=== PATIENT | female | born 1960 | race Caucasian/White ===

== ENCOUNTER 2023-06-05 01:15 | Day surgery (SDC) | payer OTHER, SELFPAY ==
[2023-05-28 15:04] VITALS: BMI 25.4
--- NOTE | 2023-05-28 15:14 | PC.NURSE ---
Report to the Outpatient Waiting Room, entrance under the green pavilion located off [facility], at time _0830__ on date _06/05/23__. Planned Procedure Time: _1030__. Time changes happen often and if your time is changed the preop area will call you the afternoon before. - You and your visitor will be asked to self-screen and do not enter if you have any COVID symptoms. - A mask is optional within the hospital at this time. Patients may have clear liquids (water, carbonated beverages, clear teas, apple juice) until 3 hours prior to surgery with a maximum of 20 ounces. - No food from midnight until time of surgery - Infants may have breast milk until 4 hours before surgery, formula 6 hours prior to surgery. - Children will be allowed to drink immediately following surgery. If applicable, please bring a bottle or sippy cup to assist with drinking. Juice, water, soda, and popsicles are readily available. For infants on formula, please bring formula the day of surgery. Pacifiers are allowed. Take the following medications with a SIP of water the morning of surgery: __DIAZEPAM, FLUOXITINE, LEVOTHYROXINE DO NOT STOP ANY OF YOUR OTHER PRESCRIPTION MEDICATIONS PRIOR TO SURGERY ?EXCEPT THE FOLLOWING Medications to discontinue per physician CALTRATE/_VITAMIN_D Date to take last dose 06/02/23 Please no make-up, nail prydeinig, hairspray, perfume, deodorant, or body powder the day of surgery. No jewelry (including any body piercings) or valuables the day of surgery, leave them at home. Please take a shower or bath the night before, or the morning of, surgery with an antibacterial soap. Wear comfortable, loose fitting clothing. Children are encouraged to wear pajamas. - Jewelry must be removed prior to entering the operating room. Rings and piercings that are not removed may be cut off. - The hospital will not accept responsibility for valuables. - Please leave all valuables, including medications, at home the day of surgery. If you are going home after surgery, a licensed cement truck driver must drive you home. - NO public transportation without another adult if you receive anesthesia. - We recommend that an adult stay with you for 24 hours following discharge. - We also recommend that you do not drive, make important decision, drink alcoholic beverages, or take any drugs that were not prescribed by your health care provider for at least 24 hours after your discharge time. For Pediatric surgeries, we recommend two adults accompany the child home. Follow any additional instructions given to you from your surgeon. If you or anyone in your household have experienced Covid symptoms in the past week, please notify your surgeon or the nurse liaison at the phone number below for possible testing. Telephone instructions given to _PATIENT___and asked if any additional questions and then verbalized understanding. Patient advised to call surgeon office or pre surgery nurse liaison [phone] if any additional questions.
[2023-06-05] VITALS (10 sets, daily range): BP systolic 114–128; BP diastolic 54–71; PULSE 59–80; RESP 12–16; TEMP 36.4–36.6; O2SAT 93–100
--- NOTE | 2023-06-05 06:04 | ECG_ITS ---
Measurements Intervals [place] Rate: 53 P: 39 DC: 148 QRS: 35 QRSD: 90 T: 54 QT: 511 QTc: 480 Interpretive Statements SINUS BRADYCARDIA LOW QRS VOLTAGE IN PRECORDIAL LEADS BORDERLINE ST-T WAVE ABNORMALITY- ANTERIOR LEADS BASELINE ARTIFACT- V4 BORDERLINE ECG NO PREVIOUS ECG AVAILABLE FOR COMPARISON Electronically Signed On 06-05-2023 8:52:58 [employer] by Son Viramontes D.O.
[2023-06-05 08:44] LABS: Urine Cotinine NEGATIVE
[2023-06-05] MEDS: LACTATED RINGERS 1,000 ML 30 ML IV CONT ×2 (09:00→12:47)
--- NOTE | 2023-06-05 09:20 | P.PNAN_ITS ---
Anes - Initial Pre Proc Eval Procedure: Operation Date: 06/05/23 10:30 Proposed Procedures p Bilateral Breast Reduction - Dong Grider MD Date/Time: 06/05/23 09:20 Surgeon: Dong Grider MD Pre Op Diagnosis: macromastia Patient Data Age: 62 Gender: F Height: 1.52 m Weight: 61.1 kg Last Vital Signs Temp 36.4 C L 06/05/23 08:30 Pulse 60 06/05/23 08:30 Resp 16 06/05/23 08:30 BP 121/66 06/05/23 08:30 Pulse Ox 98 06/05/23 08:30 O2 Del Method Room Air 06/05/23 08:30 Allergies Allergy/AdvReac Type Severity Reaction Status Date / Time Sulfa (Sulfonamide Allergy MOUTH Verified 06/05/23 08:47 Antibiotics) BREAKOUT nitrofurantoin AdvReac Nausea and Verified 06/05/23 08:47 [From Macrobid] Vomiting Home Medications Medication Instructions Recorded Confirmed Type calcium carbonate 600 mg-vitamin 2 tablet PO DAILY 05/28/23 06/05/23 History D3 20 mcg (800 unit) tablet (Caltrate with Vitamin D3) diazepam 2 mg tablet 1.25 mg PO TID PRN Dizziness 05/28/23 06/05/23 History diazepam 5 mg tablet 1.25 mg PO TID DIZZINESS 05/28/23 06/05/23 History estradiol 0.025 mg/24 hr weekly 1 patch topical WEEKLY 05/28/23 06/05/23 History transdermal patch fluoxetine 20 mg capsule 20 mg PO DAILY 05/28/23 06/05/23 History levothyroxine 88 mcg tablet 88 mcg PO DAILY 05/28/23 06/05/23 History progesterone micronized 100 mg 100 mg PO HS 05/28/23 06/05/23 History capsule Laboratory Tests 06/05/23 08:19 Cotinine Negative Patient hx anesthesia problems: none Family hx anesthesia problems: none Results Review: All pre-operative results and documents have been reviewed as part of the pre- operative evaluation. [facility] Past Medical History Medical History (Updated 06/05/23 @ 09:25 by Mauri Hale DO) C5 cervical fracture Depression Hyperlipidemia Hypothyroidism Surgical History Surgical History (Updated 06/05/23 @ 09:25 by Mauri Hale DO) History of abdominoplasty Social History Social History (Updated 06/05/23 @ 09:27 by Mauri Hale DO) Smoking status: Never smoker Alcohol intake: current Drinks per week: 18 Alcohol use details: 2-3/day Substance use: never Living arrangements: with family [place] - [place] Final PreProcedure Day of Procedure 06/05/23 09:20 Patient weight: overweight Heart: regular rate and rhythm Lungs: clear to auscultation Airway: Mallampati scale class II Neurological: alert and oriented Last oral intake: >/= 8 hours ASA classification: III Emergent: no Anesthetic plan: proceed Anesthesia type and monitoring: general ETT and standard monitoring Results Review: All pre-operative results and documents have been reviewed as part of the pre-operative evaluation. Informed Consent: The patient's anesthetic plan and its attendant risks and benefits were discussed with the patient/family/POA. Questions were solicited and answers provided to the satisfaction of the patient/family/POA.
--- NOTE | 2023-06-05 09:21 | P.OP_ITS ---
Procedure Note - Detailed Date of Procedure 06/05/23 Pre-op Diagnosis macromastia Post-op Diagnosis Same Procedure Performed Bilateral reduction mammaplasty Surgeon Dong Grider MD Anesthesia General Findings Inverted T Superior pedicle Tissue removed: Right - 335 grams Left - 252 grams Description of Procedure She is here today for bilateral breast reduction. Previously and again today the risks, benefits, alternatives were discussed in extensive detail. I wanted her to be very realistic about the risks involved as well as expectations. We discussed aftercare and what to monitor for. She understands we can never guarantee final breast size and there will always be asymmetry. I was very upfront and honest about the risks of sensation change and even nipple loss (). Made sure answered all of her questions to her satisfaction today and consent was obtained. She was marked in the preoperative holding area with their verification. The patient was taken to the operating room placed supine on the operating table. Anesthesia was provided by anesthesiology. She was prepped and draped in a standard sterile fashion. A surgical time-out was taken. Stab incisions were made and I tumessed with a tumescent solution. I marked out the nipple-areolar complex at 42 mm. I then de-epithelialized the pedicle. The pedicle was well left well more than 2 cm in thickness. I then removed the inferior portion of the breast as well as the central keel to get shape based on preoperative planning. At this point copiously irrigated with saline solution and verified a strict hemostasis. I reapproximated the pillars using a 2-0 PDS. I tailor tacked the breast into place with sury. Lateral slight fullness that was treated with a 4mm basket cannula based on S.A.F.E. liposuction to desired contour. Low volume (< 100cc). She was placed in a sitting position. I verified the nipple-areolar complex position based on preoperative markings, intraoperative measurements, and observation which were in full agreement. This nipple-areolar complex was marked at 42 mm in size. I then placed supine and de-epithelialized this. Nipple-areolar complex was inset with 3-0 Monocryl. I closed IMF deep with 1 strattafix. I closed the vertical incision with 3-0 Monocryl in the IMF with 3- 0 stratafix. Then everything was closed using a running subcuticular 4-0 Monocryl and tissue glue. A dressing was placed followed by surgical bra. Patient was awoke and taken to PACU without difficulty. All instrument sponge counts were correct at the end of the case. Estimated Blood Loss 75 Drains No Packing No Pathology Yes (Bilateral breast tissue) Complications No immediate complications Condition Stable Disposition PACU
--- NOTE | 2023-06-05 09:21 | WPDHPUPDATE1 ---
History and Physical Update Update Date/Time: 06/05/23 09:21 History and Physical has been reviewed, including an updated exam of the patient. There are NO changes in the patient's condition. Risks, benefits, and alternatives have been discussed and questions answered. Patient agrees to proceed with procedure.
[2023-06-05] MEDS: TRANEXAMIC ACID 1,000MG/ISO100 1,000 MG/100 ML BAG 200 MG IVPB (10:03)
[2023-06-05] MEDS: ceFAZolin 2 GM/D5W 50 ML 2 GM/50 ML BAG IVPB (10:13)
[2023-06-05] MEDS: LACTATED RINGERS IRRIG 1,000 ML, LIDOCAINE HCL 1% LOCAL INJ 50 ML, EPINEPHrine HCL INJ ... INFILTRATE (10:33)
[2023-06-05] MEDS: fentaNYL CITRATE INJ (*CRX) 100 MCG/2 ML VIAL 25 MCG IV PUSH ×3 (12:49→13:29)
[2023-06-05] MEDS: oxyCODONE HCL (*CRX) 5 MG TAB IR PO (14:07)
[2023-06-05] MEDS: ONDANSETRON INJ 4 MG/2 ML VIAL IV PUSH (14:18)
== END 2023-06-05 14:58 | disposition home or self-care (01) ==
PROVIDERS: Visit Provider Surgery Plastic and Reconstructive Surgery
PROC: 0HBV0ZZ Excision of Bilateral Breast, Open Approach (ICD-10-PCS; CPT 19318; principal; 2023-06-05 10:30)
DX: N62 Hypertrophy of breast (principal); N60.11 Diffuse cystic mastopathy of right breast; E78.5 Hyperlipidemia, unspecified; E03.9 Hypothyroidism, unspecified; F32.A Depression, unspecified
CPT/HCPCS: 19318; 80307; 88305; 93005; A9270; J0171; J0690; J1100; J2250; J2405; J2704; J3010; J7120